=== PATIENT | female | born 1980 | race African-American/Black ===

== ENCOUNTER 2021-06-02 09:59 | Inpatient (IN) ==
[2021-06-02] MEDS ORDERED: LACTATED RINGERS 1,000 ML IV SCH ×2 (10:30→16:00)
[2021-06-02 10:43] LABS: Eosinophils % 0.4 % (0.00-10.9); Hematocrit 36.7 VOL% (35.7-47.0); Hemoglobin 11.9 GM/DL (12.0-16.0); Immature Granulocytes % 0.3 %; Immature Granulocytes Absolute 0.03 #; Lymphocytes # 1.9 10*3/uL (1.4-4.0); Lymphocytes % 20.8 % (21.3-54.2); Mean Corpuscular HGB Conc 32.4 GM/DL (32-36); Mean Corpuscular Volume 88.2 FL (87-102); Mean Platelet Volume 10.4 FL (9.6-12.0); Neutrophils % 70.5 % (38.7-73.9); Platelet Count 238 T/CUMM (130-400); Red Blood Count 4.16 MC/CUMM (3.8-5.5); Red Cell Distribution Width 17.7 % (9.3-17.3); White Blood Count 9.1 T/CUMM (4-12)
[2021-06-02] MEDS ORDERED: ePHEDrine 50 MG/ML VIAL ONE (14:00)
[2021-06-02] MEDS ORDERED: BUPIVACAINE SPINAL 0.75% 2 ML AMP SPINAL ONE (14:05)
[2021-06-02] MEDS ORDERED: fentaNYL 100 MCG/2 ML VIAL ONE (14:22)
[2021-06-02] MEDS ORDERED: OXYTOCIN/LR 20 UNIT/1,000 ML BAG IV ONE (14:55)
[2021-06-02] MEDS ORDERED: OXYTOCIN/LR 20 UNIT/1,000 ML BAG IV SCH (15:00)
[2021-06-02] MEDS ORDERED: propofoL 200 MG/20 ML VIAL IV ONE ×2 (15:17)
[2021-06-02] MEDS ORDERED: LIDOCAINE 2% 5 ML VIAL ONE (15:18)
[2021-06-02] MEDS ORDERED: SEVOFLURANE 1 UNIT/15 MINUTE INH ONE (15:18)
[2021-06-02] MEDS ORDERED: SUCCINYLCHOLINE 200 MG/10 ML VIAL ONE (15:18)
[2021-06-02] MEDS ORDERED: ONDANSETRON 4 MG/2 ML VIAL IV PRN (15:52)
[2021-06-02] MEDS: BUTORPHANOL 2 MG/ML VIAL IV PRN ×2 (16:22→18:43)
[2021-06-02] MEDS ORDERED: miSOPROStoL 200 MCG TABLET VAG ONE (17:13)
[2021-06-02] MEDS ORDERED: AMPICILLIN INJ 2,000 MG in SODIUM CHLORIDE 0.9% 100 ML IV SCH (18:00)
[2021-06-03 00:55] LABS: Basophils % 0.1 % (0.0-0.8); Eosinophils % 0.1 % (0.00-10.9); Hematocrit 30.9 VOL% (35.7-47.0); Hemoglobin 10.2 GM/DL (12.0-16.0); Immature Granulocytes % 0.3 %; Immature Granulocytes Absolute 0.04 #; Lymphocytes # 1.9 10*3/uL (1.4-4.0); Lymphocytes % 14.8 % (21.3-54.2); Mean Corpuscular Volume 86.8 FL (87-102); Mean Platelet Volume 10.4 FL (9.6-12.0); Monocytes % 8.6 % (1.7-12.7); Neutrophils % 76.1 % (38.7-73.9); Platelet Count 229 T/CUMM (130-400); Red Blood Count 3.56 MC/CUMM (3.8-5.5); Red Cell Distribution Width 17.5 % (9.3-17.3); White Blood Count 12.6 T/CUMM (4-12)
[2021-06-03] MEDS ORDERED: OXYTOCIN/LR 20 UNIT/1,000 ML BAG IV ONE (01:25)
[2021-06-03] MEDS ORDERED: IBUPROFEN 800 MG TABLET PO PRN (01:26)
[2021-06-03 03:40] LABS: Hepatitis B Surface Ag Quant < 0.10 Index; Hepatitis B Surface Ag Result Non-Reactive (NonReactive); Rubella Antibody IgG Result Reactive (NonReactive)
[2021-06-03 03:45] LABS: HIV Antigen/Antibody Result Nonreactive (Nonreactive)
[2021-06-03 06:46] LABS: Basophils % 0.1 % (0.0-0.8); Eosinophils # 0.1 10*3/uL (0.0-0.87); Eosinophils % 0.8 % (0.00-10.9); Hematocrit 30.5 VOL% (35.7-47.0); Immature Granulocytes % 0.5 %; Immature Granulocytes Absolute 0.06 #; Lymphocytes # 2.5 10*3/uL (1.4-4.0); Lymphocytes % 22.1 % (21.3-54.2); Mean Corpuscular HGB Conc 32.8 GM/DL (32-36); Mean Corpuscular Volume 87.6 FL (87-102); Mean Platelet Volume 11.1 FL (9.6-12.0); Monocytes % 8.1 % (1.7-12.7); Neutrophils % 68.4 % (38.7-73.9); Platelet Count 229 T/CUMM (130-400); Red Blood Count 3.48 MC/CUMM (3.8-5.5); Red Cell Distribution Width 17.9 % (9.3-17.3); White Blood Count 11.2 T/CUMM (4-12)
[2021-06-03] MEDS: DOCUSATE SODIUM 100 MG CAPSULE PO SCH ×2 (11:05→21:04)
[2021-06-03] MEDS: FERROUS SULFATE 325 MG TABLET PO SCH ×2 (11:06→21:04)
[2021-06-04 08:33] VITALS: BP 115/61
[2021-06-04] MEDS: DOCUSATE SODIUM 100 MG CAPSULE PO SCH (09:22)
[2021-06-04] MEDS: FERROUS SULFATE 325 MG TABLET PO SCH (09:22)
[2021-06-04] MEDS ORDERED: guaiFENesin/DM ER 600-30 MG TABLET PO PRN (09:31)
== END 2021-06-04 11:44 | disposition home or self-care (01) | DRG 542 ==
LOC: N.LDOUT 09:59 → N.LD 10:01 → N.OB 15:53
PROVIDERS: ADMIT Obstetrics & Gynecology; ATTEND Obstetrics & Gynecology